=== PATIENT | female | born 1945 | race Hispanic/Latino ===

== ENCOUNTER → 2017-05-15 | Outpatient (CLI) | payer MEDICARE, OTHER ==
[~2017-05-15] MED LIST: ALBU8.5H8 IH; ASCO500T8 PO; CALTRATE PO; CHOL200074 PO; GARL1000 PO; LACT1CAP58 PO; LECI400C4 PO; LEVO25TA54 PO; LIVER SUPPLEMENT PO; LOSARTAN PO; MULT-1258 PO; OMEG1CAP6 PO; PRAV40TA3 PO; UBID100C10 PO; VIT D PO; VITA400C25 PO; VITA400C70 PO; [UNRECOGNIZED DRUG - OTHER] PO
== END ==
LOC: RAH 11:39
PROVIDERS: ATTEND Internal Medicine Endocrinology, Diabetes & Metabolism
DX: E04.2 Nontoxic multinodular goiter (principal)
CPT/HCPCS: 76536

== ENCOUNTER → 2019-08-04 | Outpatient (CLI) | payer MEDICARE, OTHER ==
[~2019-08-04] MED LIST changes: -ASCO500T8 PO; +ASCO500T92 PO; +VITA-164 PO; -VITA400C70 PO
[2019-08-04 15:35] LABS: T4 (THYROXINE) 8.7 ug/dL (4.7-13.3); THYROID STIMULATING HORMONE 2.26 uIU/mL (0.36-3.74)
== END | disposition home or self-care (01) ==
LOC: RAH 14:07
PROVIDERS: ATTEND Internal Medicine Endocrinology, Diabetes & Metabolism
DX: E04.2 Nontoxic multinodular goiter (principal); E03.8 Other specified hypothyroidism
CPT/HCPCS: 36415; 76536; 84436; 84439; 84443

== ENCOUNTER → 2020-01-28 | Outpatient (CLI) | payer MEDICARE, OTHER ==
[2020-01-28 12:44] LABS: THYROID STIMULATING HORMONE 1.89 uIU/mL (0.36-3.74)
== END | disposition home or self-care (01) ==
LOC: RAH 10:47
PROVIDERS: ATTEND Internal Medicine Endocrinology, Diabetes & Metabolism
DX: E04.2 Nontoxic multinodular goiter (principal); E03.8 Other specified hypothyroidism
CPT/HCPCS: 36415; 76536; 84439; 84443

== ENCOUNTER 2021-05-14 10:00 | Inpatient (IN) | payer MEDICARE, OTHER ==
[~2021-05-14] VITALS: Ht 165.1 cm; Wt 63.6 kg
[2021-05-14 10:32] LABS: APPEARANCE,URINE Clear (CLEAR); BILIRUBIN,URINE Negative (NEGATIVE); COLOR,URINE Yellow (YELLOW); GLUCOSE, URINE (UA) Negative (NEGATIVE); KETONES,URINE Negative (NEGATIVE); LEUKOCYTE ESTERASE ,URINE Trace (NEGATIVE); NITRATE,URINE Negative (NEGATIVE); OCCULT BLOOD,URINE Negative (NEGATIVE); PH,URINE 6.5 (5.0-8.0); PROTEIN,URINE Negative (NEGATIVE); UROBILINOGEN,URINE 0.2 mg/dL (0.2-1.0)
[2021-05-14 10:44] LABS: BASOPHILS % (AUTO) 0.3 % (0.0-5.0); EOSINOPHILS % (AUTO) 0.8 % (0.0-8.0); HEMATOCRIT 41.2 % (36-48); LYMPHOCYTES % (AUTO) 20.7 % (21.0-51.0); MEAN CORPUSCULAR HEMOGLOBIN 31.3 pg (27.0-33.0); MEAN CORPUSCULAR VOLUME 94.7 fL (79-99); MONOCYTES % (AUTO) 6.9 % (3.0-13.0); NEUTROPHILS % (AUTO) 71.1 % (40.0-77.0); PLATELET COUNT (AUTO) 283 K/uL (130-400); RED BLOOD CELL COUNT(AUTO) 4.35 MIL/uL (4.00-5.50); RED CELL DISTRIBUTION WIDTH 13.8 % (11.0-15.5); WHITE BLOOD COUNT (AUTO) 11.5 K/uL (4.8-10.8)
[2021-05-14 10:47] LABS: BACTERIA,URINE Few /HPF (None Seen); RBC,URINE 0-1 /HPF (0-1); SQUAMOUS EPITHELIAL CELL,UR Rare /HPF (0-2); WBC,URINE 0-1 /HPF (0-1)
[2021-05-14 10:55] LABS: INR 1.01 (0.85-1.15)
[2021-05-15 10:59] VITALS: BP 152/73
[2021-05-15] MEDS ORDERED: PRAV40TA3 PO (11:40)
[2021-05-15] MEDS ORDERED: AMLO-257 PO (11:40)
[2021-05-15] MEDS ORDERED: UBID100C45 PO (11:40)
[2021-05-15] MEDS ORDERED: [UNRECOGNIZED DRUG - CODE] PO (11:40)
[2021-05-15] MEDS ORDERED: ASCO100031 PO (11:40)
[2021-05-15] MEDS ORDERED: VITAMIN B12 PO (11:40)
[2021-05-15] MEDS ORDERED: CETI-89 PO (11:40)
[2021-05-15] MEDS ORDERED: GARLIC PO (11:40)
[2021-05-15] MEDS ORDERED: MELA1TAB28 PO (11:40)
[2021-05-15] MEDS ORDERED: LEVO25CA4 PO (11:40)
[2021-05-15] MEDS ORDERED: FOLI0.8C PO (11:40)
[2021-05-15] MEDS ORDERED: VIT1CAPS47 PO (11:40)
[2021-05-15] MEDS ORDERED: FISH1CAP63 PO (11:40)
[2021-05-15] MEDS ORDERED: MULT-1250 PO (11:40)
[2021-05-15] MEDS ORDERED: LOSA100T58 PO (11:40)
[2021-05-15] MEDS ORDERED: PROBIOTIC PO (11:40)
[2021-05-16] VITALS (23 sets, daily range): BP systolic 117–166; BP diastolic 53–80
[2021-05-16] MEDS: CLINDAMYCIN IVPB 900MG/50ML 50 ML IV SCH ×3 (06:00→21:31)
[2021-05-16] MEDS ORDERED: LACTATED RINGERS 1000ML 1,000 ML IV ONE (11:01)
[2021-05-16] MEDS ORDERED: CELECOXIB 200 MG CAP ONE (12:44)
[2021-05-16] MEDS ORDERED: ACETAMINOPHEN 500 MG TABLET ONE (12:44)
[2021-05-16] MEDS ORDERED: KETOROLAC 15MG/ML VIAL (15MG/ML) ONE (12:44)
[2021-05-16] MEDS ORDERED: NITROFURANTOIN MONOHYD/M-CRYST 100 MG CAPSULE PO SCH (13:00)
[2021-05-16] MEDS ORDERED: CLINDAMYCIN 900MG/6ML INJ ONE (13:54)
[2021-05-16] MEDS ORDERED: TRANEXAMIC ACID 1000MG/10ML ONE ×2 (13:54→18:38)
[2021-05-16] MEDS ORDERED: SUCCINYLCHOLINE CHLORIDE 20 MG/ML 10 ML VIAL ONE (14:19)
[2021-05-16] MEDS ORDERED: LIDOCAINE PF 100MG/5ML (2%) SYRINGE 5ML ONE (14:19)
[2021-05-16] MEDS ORDERED: ROCURONIUM 10MG/1ML SYR 10 MG/ML ML ONE ×2 (14:19→15:07)
[2021-05-16] MEDS ORDERED: MIDAZOLAM HCL 1 MG/ML 2ML VIAL ONE (14:19)
[2021-05-16] MEDS ORDERED: PROPOFOL 10 MG/ML 20ML VIAL IV ONE (14:19)
[2021-05-16] MEDS ORDERED: FENTANYL CITRATE PF 50 MCG/1 ML 2ML VIAL ONE (14:19)
[2021-05-16] MEDS ORDERED: EPHEDRINE SULFATE 50 MG/ML AMPULE ONE (14:39)
[2021-05-16] MEDS ORDERED: CLINDAMYCIN 900MG/6ML INJ IJ ONE (15:08)
[2021-05-16] MEDS ORDERED: DEXAMETHASONE SOD PHOSPHATE 10MG/ML 1ML VIAL ONE (16:50)
[2021-05-16] MEDS ORDERED: FERROUS FUMARATE 324 MG TABLET PO PRN (17:00)
[2021-05-16] MEDS ORDERED: OXYCODONE HCL 5 MG TAB PO PRN ×2 (17:00)
[2021-05-16] MEDS ORDERED: CALCIUM CARB 500MG PO PRN (17:00)
[2021-05-16] MEDS ORDERED: DiphenhydrAMINE HCL 50 MG/ML VIAL IVP PRN (17:00)
[2021-05-16] MEDS ORDERED: LIDOCAINE HCL-MPF 1% 2ML VIAL IV PRN (17:00)
[2021-05-16] MEDS ORDERED: POTASSIUM CHLORIDE 10% ELIXIR 20 MEQ/15 ML UDCUP PO PRN (17:00)
[2021-05-16] MEDS ORDERED: 0.9%NACL 1000ML 1,000 ML IV SCH (17:00)
[2021-05-16] MEDS ORDERED: KETOROLAC 15MG/ML VIAL (15MG/ML) IV PRN (17:00)
[2021-05-16] MEDS ORDERED: POTASSIUM CHLORIDE 20MEQ/100ML 100 ML IV PRN (17:00)
[2021-05-16] MEDS ORDERED: TEMAZEPAM 15 MG CAPSULE PO PRN (17:00)
[2021-05-16] MEDS ORDERED: ROPIVACAINE 0.5% 5MG/ML 30ML IJ ONE (17:06)
[2021-05-16] MEDS ORDERED: GLYCOPYRROLATE 1 MG/5 ML SYRINGE ONE (17:11)
[2021-05-16] MEDS ORDERED: NEOSTIGMINE 5MG/5ML SYR IV ONE (17:11)
[2021-05-16] MEDS ORDERED: MEPERIDINE-PF 25 MG/ML SYG ONE (18:06)
[2021-05-16] MEDS ORDERED: **HM**(Melatonin/Pyridoxine HCl (B6) (Melatonin 3 mg Tablet PO PRN (20:00)
[2021-05-16] MEDS ORDERED: CETIRIZINE HCL 5 MG TABLET PO PRN (20:00)
[2021-05-16] MEDS: **HM**Vit C/E/Zn/Coppr/Lutein/Zeaxan (Preservision Areds 2 Soft PO SCH (21:00)
[2021-05-16] MEDS: **HM**(Folic Acid 0.8 MG PO SCH (21:00)
[2021-05-16] MEDS: ASPIRIN 81 MG EC TAB PO SCH (21:30)
[2021-05-16] MEDS: ACETAMINOPHEN 500 MG TABLET PO SCH (21:30)
[2021-05-16] MEDS: ATORVASTATIN 10 MG TABLET PO SCH (21:31)
[2021-05-16] MEDS: PREGABALIN 25 MG CAP PO SCH (21:31)
[2021-05-16] MEDS: CYANOCOBALAMIN (VITAMIN B-12) 1,000 MCG TABLET PO SCH (21:31)
[2021-05-16] MEDS: FAMOTIDINE 20MG TAB PO SCH (21:31)
[2021-05-16] MEDS: NITROFURANTOIN MONOHYD/M-CRYST 100 MG CAPSULE PO SCH (21:31)
[2021-05-17 00:35] VITALS: BP 123/82
[2021-05-17] MEDS: ACETAMINOPHEN 500 MG TABLET PO SCH ×3 (00:36→17:51)
[2021-05-17] MEDS ORDERED: LEVOTHYROXINE 25 MCG TABLET ONE (03:45)
[2021-05-17 03:50] VITALS: BP 129/57
[2021-05-17 03:55] LABS: HEMATOCRIT 33.9 % (36-48); MEAN CORPUSCULAR HEMOGLOBIN 31.1 pg (27.0-33.0); MEAN CORPUSCULAR HGB CONC 33.9 g/dL (32.0-36.0); MEAN CORPUSCULAR VOLUME 91.6 fL (79-99); RED BLOOD CELL COUNT(AUTO) 3.7 MIL/uL (4.00-5.50); RED CELL DISTRIBUTION WIDTH 13.3 % (11.0-15.5); WHITE BLOOD COUNT (AUTO) 14.6 K/uL (4.8-10.8)
[2021-05-17 04:14] LABS: CREATININE 0.7 mg/dL (0.5-1.5); POTASSIUM 3.6 mmol/L (3.5-5.1)
[2021-05-17] MEDS: CLINDAMYCIN IVPB 900MG/50ML 50 ML IV SCH (05:26)
[2021-05-17] MEDS: LEVOTHYROXINE 25 MCG TABLET PO SCH (05:26)
[2021-05-17] MEDS: KCL 20 MEQ ERTAB PO PRN ×2 (05:27→17:51)
[2021-05-17] MEDS: TRAMADOL HCL 50 MG TABLET PO PRN (05:32)
[2021-05-17 08:00] VITALS: BP 123/54
[2021-05-17] MEDS: **HM**Vit C/E/Zn/Coppr/Lutein/Zeaxan (Preservision Areds 2 Soft PO SCH ×2 (08:05→19:51)
[2021-05-17] MEDS: LECITHIN 1200 MG PO SCH (08:05)
[2021-05-17] MEDS: PROBIOTIC PO SCH (08:05)
[2021-05-17] MEDS: MULTIVITAMIN WITH MINERALS TABLET PO SCH (08:16)
[2021-05-17] MEDS: POLYETHYLENE GLYCOL 3350 17 GM POWD.PACK PO SCH (08:17)
[2021-05-17] MEDS: FAMOTIDINE 20MG TAB PO SCH ×2 (08:17→19:51)
[2021-05-17] MEDS: PREGABALIN 25 MG CAP PO SCH ×2 (08:17→19:51)
[2021-05-17] MEDS: NITROFURANTOIN MONOHYD/M-CRYST 100 MG CAPSULE PO SCH ×2 (08:17→19:51)
[2021-05-17] MEDS: ASPIRIN 81 MG EC TAB PO SCH ×2 (08:18→19:51)
[2021-05-17] MEDS: LOSARTAN 100 MG TABLET PO SCH (08:21)
[2021-05-17] MEDS: AMLODIPINE 5 MG TAB PO SCH (08:21)
[2021-05-17 12:00] VITALS: BP 130/61
[2021-05-17 16:45] VITALS: BP 177/78
[2021-05-17] MEDS: ATORVASTATIN 10 MG TABLET PO SCH (19:51)
[2021-05-17] MEDS: CYANOCOBALAMIN (VITAMIN B-12) 1,000 MCG TABLET PO SCH (19:51)
[2021-05-17] MEDS: **HM**(Folic Acid 0.8 MG PO SCH (19:51)
[2021-05-17 20:00] VITALS: BP 166/65
[2021-05-17] MEDS: ONDANSETRON 4MG INJ IVP PRN (20:58)
[2021-05-17] MEDS ORDERED: PROMETHAZINE HCL 25 MG/ML 1ML AMPULE IM ONE (23:00)
[2021-05-17] MEDS ORDERED: 0.9% NACL 500ML IV.SOLN 500 ML IV SCH (23:00)
[2021-05-17] MEDS ORDERED: 0.9% NACL 500ML IV.SOLN 500 ML IV ONE (23:02)
[2021-05-17] MEDS ORDERED: METOPROLOL TARTRATE 25 MG TAB ONE (23:21)
[2021-05-17] MEDS ORDERED: METOPROLOL TARTRATE 25 MG TAB PO ONE (23:30)
[2021-05-18] VITALS: BP 177/81
[2021-05-18] MEDS: ACETAMINOPHEN 500 MG TABLET PO SCH ×3 (00:42→16:19)
[2021-05-18 01:00] VITALS: BP 179/85
[2021-05-18 04:00] VITALS: BP 179/82
[2021-05-18] MEDS ORDERED: LABETALOL 20MG SYG IV PRN (04:30)
[2021-05-18 06:12] LABS: BASOPHILS % (AUTO) 0.3 % (0.0-5.0); EOSINOPHILS % (AUTO) 0.1 % (0.0-8.0); HEMATOCRIT 33.9 % (36-48); LYMPHOCYTES % (AUTO) 4.2 % (21.0-51.0); MEAN CORPUSCULAR HEMOGLOBIN 30.5 pg (27.0-33.0); MEAN CORPUSCULAR HGB CONC 34.5 g/dL (32.0-36.0); MEAN CORPUSCULAR VOLUME 88.3 fL (79-99); MONOCYTES % (AUTO) 6.6 % (3.0-13.0); NEUTROPHILS % (AUTO) 88.4 % (40.0-77.0); PLATELET COUNT (AUTO) 238 K/uL (130-400); RED BLOOD CELL COUNT(AUTO) 3.84 MIL/uL (4.00-5.50); RED CELL DISTRIBUTION WIDTH 13.5 % (11.0-15.5); WHITE BLOOD COUNT (AUTO) 17.6 K/uL (4.8-10.8)
[2021-05-18 06:29] LABS: ALBUMIN 3.4 g/dL (3.5-5.0); BILIRUBIN,TOTAL 0.5 mg/dL (0.2-1.0); CREATININE 0.5 mg/dL (0.5-1.5); POTASSIUM 3.8 mmol/L (3.5-5.1); TOTAL PROTEIN, SERUM 7.1 g/dL (6.0-8.3)
[2021-05-18] MEDS: LEVOTHYROXINE 25 MCG TABLET PO SCH (06:33)
[2021-05-18 08:14] VITALS: BP 147/69
[2021-05-18] MEDS: **HM**Vit C/E/Zn/Coppr/Lutein/Zeaxan (Preservision Areds 2 Soft PO SCH ×2 (08:19→20:34)
[2021-05-18] MEDS: PROBIOTIC PO SCH (08:20)
[2021-05-18] MEDS: ONDANSETRON 4MG INJ IVP PRN (08:26)
[2021-05-18] MEDS: NITROFURANTOIN MONOHYD/M-CRYST 100 MG CAPSULE PO SCH ×2 (08:40→20:33)
[2021-05-18] MEDS: PREGABALIN 25 MG CAP PO SCH ×2 (08:40→20:33)
[2021-05-18] MEDS: LOSARTAN 100 MG TABLET PO SCH (08:40)
[2021-05-18] MEDS: AMLODIPINE 5 MG TAB PO SCH (08:40)
[2021-05-18] MEDS: ASPIRIN 81 MG EC TAB PO SCH ×2 (08:40→20:33)
[2021-05-18] MEDS: FAMOTIDINE 20MG TAB PO SCH ×2 (08:40→20:33)
[2021-05-18] MEDS: POLYETHYLENE GLYCOL 3350 17 GM POWD.PACK PO SCH (08:40)
[2021-05-18] MEDS: LECITHIN 1200 MG PO SCH (09:00)
[2021-05-18] MEDS: MULTIVITAMIN WITH MINERALS TABLET PO SCH (09:00)
[2021-05-18] MEDS ORDERED: FISH OIL 1000 MG/CAP PO SCH (09:00)
[2021-05-18 11:32] VITALS: BP 105/51
[2021-05-18] MEDS ORDERED: LOSARTAN 50 MG TABLET PO SCH ×2 (12:30→12:45)
[2021-05-18 15:44] VITALS: BP 120/52
[2021-05-18] MEDS: TRAMADOL HCL 50 MG TABLET PO PRN ×2 (16:20→23:45)
[2021-05-18] MEDS: ATORVASTATIN 10 MG TABLET PO SCH (20:33)
[2021-05-18] MEDS: CYANOCOBALAMIN (VITAMIN B-12) 1,000 MCG TABLET PO SCH (20:33)
[2021-05-18] MEDS: **HM**(Folic Acid 0.8 MG PO SCH (20:34)
[2021-05-19] MEDS ORDERED: LOSARTAN 100 MG TABLET PO SCH (09:00)
[2021-05-19] MEDS ORDERED: BISACODYL 10 MG SUPP.RECT RC PRN (17:00)
== END 2021-05-19 00:30 | DRG 470 ==
LOC: EDSTATUS 10:00 → OBSVTOIN 05-16 10:54 → DAHIP 05-16 10:54 → 4BH 05-16 18:50
PROVIDERS: ADMIT Orthopaedic Surgery; ATTEND Orthopaedic Surgery
PROC: 0SRD0J9 Replacement of Left Knee Joint with Synthetic Substitute, Cemented, Open Approach (ICD-10-PCS; principal; 2021-05-16 15:08)
DX: M17.12 Unilateral primary osteoarthritis, left knee (principal); D62 Acute posthemorrhagic anemia; N39.0 Urinary tract infection, site not specified; I10 Essential (primary) hypertension; E03.9 Hypothyroidism, unspecified; E78.00 Pure hypercholesterolemia, unspecified; Z20.822 Contact with and (suspected) exposure to COVID-19; Z88.0 Allergy status to penicillin; Z88.2 Allergy status to sulfonamides; Z88.8 Allergy status to other drugs, medicaments and biological substances; Z91.048 Other nonmedicinal substance allergy status; Z90.49 Acquired absence of other specified parts of digestive tract; Z82.5 Family history of asthma and other chronic lower respiratory diseases; Z82.0 Family history of epilepsy and other diseases of the nervous system; Z82.3 Family history of stroke; Z82.49 Family history of ischemic heart disease and other diseases of the circulatory system; Z83.3 Family history of diabetes mellitus; Z80.1 Family history of malignant neoplasm of trachea, bronchus and lung; Z80.0 Family history of malignant neoplasm of digestive organs
CPT/HCPCS: 36415; 80048; 80053; 81001; 85025; 85027; 85610; 87077; 87088; 87186; 87635; 87641; 97039; G0378; J0330; J1100; J1885; J2001; J2175; J2250; J2405; J2550; J2704; J2710; J2795; J3010; J3490; J7040; J7120

== ENCOUNTER → 2023-02-04 | Outpatient (CLI) | payer MEDICARE, OTHER ==
[~2023-02-04] MED LIST changes: -ALBU8.5H8 IH; +AMLO-257 PO; +ASCO100031 PO; -ASCO500T92 PO; -CALTRATE PO; +CETI-89 PO; -CHOL200074 PO; +FISH1CAP63 PO; +FOLI0.8C PO; -GARL1000 PO; +GARLIC PO; -LACT1CAP58 PO; -LECI400C4 PO; +LEVO25CA4 PO; -LEVO25TA54 PO; -LIVER SUPPLEMENT PO; +LOSA100T59 PO; -LOSARTAN PO; +MELA1TAB28 PO; +MULT-1250 PO; -MULT-1258 PO; -OMEG1CAP6 PO; +PROBIOTIC PO; -UBID100C10 PO; +UBID100C45 PO; -VIT D PO; +VIT1CAPS47 PO; -VITA-164 PO; -VITA400C25 PO; +VITAMIN B12 PO; +[UNRECOGNIZED DRUG - CODE] PO; -[UNRECOGNIZED DRUG - OTHER] PO
== END | disposition home or self-care (01) ==
LOC: RAH 10:58
PROVIDERS: ATTEND Internal Medicine Endocrinology, Diabetes & Metabolism
DX: E04.2 Nontoxic multinodular goiter (principal)
CPT/HCPCS: 76536